=== PATIENT | male | born 1945 | race Caucasian/White ===

== ENCOUNTER 2018-05-25 10:15 | Emergency (ER) | payer MEDICARE, OTHER ==
[~2018-05-25] VITALS: Ht 182.9 cm; Wt 81.8 kg
[2018-05-25 10:50] VITALS: BP 128/77
[2018-05-25] MEDS ORDERED: diphenhydrAMINE 50 mg/ml inj IM ONE (10:55)
[2018-05-25] MEDS ORDERED: epiNEPHrine 1 mg/ml inj SQ STA (11:50)
[2018-05-25] MEDS ORDERED: famotidine 20mg tablet PO ONE (11:50)
[2018-05-25] MEDS ORDERED: DIPH25CA83 PO (11:52)
[2018-05-25] MEDS ORDERED: EPIN0.3P8 IM (11:52)
== END 2018-05-25 12:27 | disposition home or self-care (01) ==
LOC: ER 10:16
DX: T78.40XA Allergy, unspecified, initial encounter (principal); T63.461A Toxic effect of venom of wasps, accidental (unintentional), initial encounter; Z79.899 Other long term (current) drug therapy; Y92.89 Other specified places as the place of occurrence of the external cause
CPT/HCPCS: 96372; 99284; J0171; J1200

== ENCOUNTER 2018-05-30 14:10 | Inpatient (IN) | payer MEDICARE, OTHER ==
[~2018-05-30] VITALS: Ht 182.9 cm; Wt 81.8 kg
[~2018-05-30 14:10] MED LIST: DIPH25CA83 PO; EPIN0.3P8 IM
[2018-05-30] MEDS ORDERED: morphine 4 MG/ML inj SYRINge IV ONE (14:25)
[2018-05-30] MEDS ORDERED: normal saline 1000ML IV soln IVB ONE (14:25)
[2018-05-30] MEDS ORDERED: ondansetron/PF 4mg/2ml inj IV ONE (14:25)
[2018-05-30] MEDS ORDERED: TETanus/Pertussis (Acell)/Diphther VAC/PF (Tdap-Adult) 0.5ml syringe IM ONE (14:25)
[2018-05-30] MEDS ORDERED: BUPIVAcaine/PF 2.5 mg/ml (0.25%) 30ml vial IJ ONE (15:05)
[2018-05-30] MEDS ORDERED: LIDOcaine 1% 30ml preserv. free vial IJ ONE (15:05)
[2018-05-30 15:16] LABS: BASOPHILS % (AUTO) 0.2 % (0-1); EOSINOPHILS # (AUTO) 0.2 X10'3 (0-0.9); EOSINOPHILS % (AUTO) 2.2 % (0-6); HEMOGLOBIN 13.8 g/dl (14.0-17.9); LYMPHOCYTES # (AUTO) 1.1 X10'3 (1.1-4.8); LYMPHOCYTES % (AUTO) 10.9 % (21-51); MEAN CORPUSCULAR HEMOGLOBIN 33.3 PG (27.0-31.0); MEAN CORPUSCULAR HGB CONC 34.5 % (33.0-36.5); MEAN CORPUSCULAR VOLUME 96.3 FL (78-98); MEAN PLATELET VOLUME 8.2 FL (7.4-10.4); MONOCYTES # (AUTO) 0.6 X10'3 (0-0.9); MONOCYTES % (AUTO) 6.4 % (2-12); NEUTROPHILS % (AUTO) 80.3 % (42-75); PLATELET COUNT 156 X10'3 (140-440); RED BLOOD COUNT 4.16 X10'6 (4.70-6.10); RED CELL DISTRIBUTION WIDTH 13.9 % (11.5-14.5)
[2018-05-30] MEDS ORDERED: BUPIVAcaine 2.5mg/ml inj 50ml vial (contains preservative) IJ ONE (15:25)
[2018-05-30 15:33] LABS: PARTIAL THROMBOPLASTIN TIME 22 SECONDS (22-32); PROTHROMBIN TIME 10.6 SECONDS (9.0-12.0)
[2018-05-30 15:38] LABS: ALANINE AMINOTRANSFERASE 26 U/L (12-78); ALBUMIN 3.6 G/DL (3.4-5.0); ALBUMIN/GLOBULIN RATIO 1.2 (1.1-1.5); ALKALINE PHOSPHATASE 70 IU/L (46-116); ANION GAP 8 (8-16); ASPARTATE AMINO TRANSFERASE 18 U/L (10-37); BILIRUBIN,TOTAL 0.6 MG/DL (0.1-1.0); BLOOD UREA NITROGEN 16 MG/DL (7-18); BUN/CREATININE RATIO 18.6 (5.4-32.0); CALCIUM 8.7 MG/DL (8.5-10.1); CHLORIDE 108 MMOL/L (99-107); CREATININE 0.86 MG/DL (0.60-1.10); GLUCOSE 182 MG/DL (70-104); POTASSIUM 3.9 MMOL/L (3.5-5.1); SODIUM 143 MMOL/L (135-145); TOTAL CARBON DIOXIDE 27.1 MMOL/L (24-32); TOTAL PROTEIN 6.6 G/DL (6.4-8.2); eGFR 87 ML/MIN
[2018-05-30 16:05] LABS: TOTAL CELLS COUNTED 100
[2018-05-30 16:06] LABS: PLATELET ESTIMATE NORMAL
[2018-05-30] MEDS ORDERED: acetaminophen 325mg tablet PO PRN ×2 (17:00)
[2018-05-30] MEDS ORDERED: HYDROcodone/acetaminophen 5mg/325mg tablet PO PRN (17:00)
[2018-05-30] MEDS ORDERED: magnesium 1gm/100ml D5W IVPB 100 ML IV PRN (17:00)
[2018-05-30] MEDS ORDERED: potassium Cl 40MEQ/NS 500ml 500 ML IV PRN ×2 (17:00)
[2018-05-30] MEDS ORDERED: morphine 4 MG/ML inj SYRINge IV PRN (17:00)
[2018-05-30] MEDS ORDERED: mag hydrox/Alum hydrox/simeth 30ml oral suspension PO PRN (17:00)
[2018-05-30] MEDS ORDERED: magnesium Cl slow-release 64mg tablet PO PRN (17:00)
[2018-05-30] MEDS ORDERED: magnesium 4gm in 100ml NS 100 ML IV PRN (17:00)
[2018-05-30] MEDS ORDERED: potassium Cl 20 mEq SR tablet PO PRN ×2 (17:00)
[2018-05-30] MEDS ORDERED: magnesium hydroxide 30ml (MOM) UD suspension PO PRN (17:00)
[2018-05-30] MEDS ORDERED: ondansetron/PF 4mg/2ml inj IV PRN (17:00)
[2018-05-30 17:29] LABS: CLARITY,URINE CLEAR (Clear); COLOR,URINE YELLOW (Yellow); GLUCOSE, URINE >=1000 mg/dl (Neg); KETONES,URINE TRACE mg/dl (Neg); LEUKOCYTE ESTERASE ,URINE NEGATIVE (Neg); NITRITES, URINE NEGATIVE (Neg); OCCULT BLOOD,URINE SMALL (Neg); PH,URINE 5.5 (4.8-8.0); PROTEIN,URINE NEGATIVE (Neg); UROBILINOGEN,URINE 0.2 E.U/dL (0.2-1.0)
[2018-05-30 17:34] LABS: UA COLLECTION TYPE FOLEY CATH
[2018-05-30 17:42] LABS: BACTERIA,URINE FEW /HPF (Neg); SQUAMOUS EPITHELIAL CELL,UR FEW /LPF (FEW); WBC,URINE 0-4 /HPF (0-4)
[2018-05-30] MEDS ORDERED: IRON150C13 PO (17:49)
[2018-05-30] MEDS ORDERED: GLIM4TAB79 PO (17:49)
[2018-05-30] MEDS ORDERED: QUIN10TA16 PO (17:49)
[2018-05-30] MEDS ORDERED: PHEN30CA2 PO (17:49)
[2018-05-30] MEDS ORDERED: PRAM0.129 PO (17:49)
[2018-05-30] MEDS ORDERED: OMEP-50 PO (17:49)
[2018-05-30] MEDS ORDERED: ATEN50TA2 PO (17:49)
[2018-05-30] MEDS ORDERED: LIRA0.6P2 (17:49)
[2018-05-30] MEDS ORDERED: FAMO20TA8 PO (17:49)
[2018-05-30] MEDS ORDERED: ROSU5TAB PO (17:49)
[2018-05-30] MEDS ORDERED: METF500T6 PO (17:49)
[2018-05-30] MEDS ORDERED: TEST200V10 IM (17:49)
[2018-05-30] MEDS ORDERED: CITA-278 PO (17:49)
[2018-05-30] MEDS ORDERED: CANA300T PO (17:49)
[2018-05-30 18:00] VITALS: BP 144/73
[2018-05-30] MEDS: normal saline 1000ml 1,000 ML IV SCH (19:43)
[2018-05-30] MEDS: morphine 4 MG/ML inj SYRINge IV PRN (19:45)
[2018-05-30] MEDS: heparin, porcine 5000 units/ml vial SQ SCH (20:07)
[2018-05-30] MEDS ORDERED: temazepam 15mg capsule PO PRN (21:00)
[2018-05-30 22:00] VITALS: BP 127/74
[2018-05-30] MEDS: HYDROcodone/acetaminophen 10/325mg tab PO PRN (22:07)
[2018-05-31] VITALS (19 sets, daily range): BP systolic 99–178; BP diastolic 49–90
[2018-05-31] MEDS: morphine 4 MG/ML inj SYRINge IV PRN (04:10)
[2018-05-31] MEDS: normal saline 1000ml 1,000 ML IV SCH (04:11)
[2018-05-31 05:59] LABS: BASOPHILS % (AUTO) 0.4 % (0-1); EOSINOPHILS # (AUTO) 0.2 X10'3 (0-0.9); EOSINOPHILS % (AUTO) 2.6 % (0-6); HEMATOCRIT 37.5 % (42.0-52.0); HEMOGLOBIN 13.2 g/dl (14.0-17.9); LYMPHOCYTES # (AUTO) 1.6 X10'3 (1.1-4.8); LYMPHOCYTES % (AUTO) 21.6 % (21-51); MEAN CORPUSCULAR HEMOGLOBIN 33.3 PG (27.0-31.0); MEAN CORPUSCULAR HGB CONC 35.1 % (33.0-36.5); MEAN CORPUSCULAR VOLUME 94.9 FL (78-98); MEAN PLATELET VOLUME 9.4 FL (7.4-10.4); MONOCYTES # (AUTO) 0.8 X10'3 (0-0.9); MONOCYTES % (AUTO) 10.6 % (2-12); NEUTROPHILS # (AUTO) 4.9 X10'3 (1.8-7.7); NEUTROPHILS % (AUTO) 64.8 % (42-75); PLATELET COUNT 137 X10'3 (140-440); RED BLOOD COUNT 3.95 X10'6 (4.70-6.10); RED CELL DISTRIBUTION WIDTH 13.8 % (11.5-14.5); WHITE BLOOD COUNT 7.6 X10'3 (4.5-11.0)
[2018-05-31 06:18] LABS: ALBUMIN 3.3 G/DL (3.4-5.0); ANION GAP 9 (8-16); BLOOD UREA NITROGEN 14 MG/DL (7-18); BUN/CREATININE RATIO 17.9 (5.4-32.0); CALCIUM 8.2 MG/DL (8.5-10.1); CHLORIDE 105 MMOL/L (99-107); CREATININE 0.78 MG/DL (0.60-1.10); GLUCOSE 110 MG/DL (70-104); MAGNESIUM 1.9 MG/DL (1.5-2.4); POTASSIUM 3.9 MMOL/L (3.5-5.1); SODIUM 140 MMOL/L (135-145); TOTAL CARBON DIOXIDE 25.6 MMOL/L (24-32); eGFR > 90 ML/MIN
[2018-05-31] MEDS: K and/or MAG REPLACEMENT MC SCH (07:06)
[2018-05-31] MEDS: heparin, porcine 5000 units/ml vial SQ SCH ×2 (07:06→19:27)
[2018-05-31 07:19] LABS: HEMOGLOBIN A1C 7.3 % (4.5-6.2)
[2018-05-31] MEDS ORDERED: sevoflurane 250ml liquid IH ONE (07:56)
[2018-05-31] MEDS ORDERED: propofol inj 20 ML IV ONE (08:00)
[2018-05-31] MEDS ORDERED: fentaNYL/PF 50MCG/1 ML 2ML syringe ONE (08:00)
[2018-05-31] MEDS ORDERED: midazolam 2 mg/2 ml injection ONE (08:00)
[2018-05-31] MEDS ORDERED: ringers solution, lacted 1,000 ML IV SCH (08:01)
[2018-05-31] MEDS ORDERED: proCHLORperazine 10 MG/2 ml inj IV PRN (08:05)
[2018-05-31] MEDS ORDERED: ceFAZolin 1000mg inj ONE ×2 (08:05)
[2018-05-31] MEDS ORDERED: meperidine/PF 25mg/ml syringe IV PRN ×2 (08:05)
[2018-05-31] MEDS ORDERED: morphine 4 MG/ML inj SYRINge IV PRN ×2 (08:05)
[2018-05-31] MEDS ORDERED: ondansetron/PF 4mg/2ml inj IV PRN (08:05)
[2018-05-31] MEDS: meperidine/PF 25mg/ml syringe IV PRN ×2 (09:20→09:35)
[2018-05-31] MEDS: HYDROcodone/acetaminophen 10/325mg tab PO PRN ×3 (10:44→19:21)
[2018-05-31] MEDS ORDERED: dextrose ORAL solution 15 GM/59 ML bottle PO PRN ×2 (13:30)
[2018-05-31] MEDS ORDERED: glucagon, human recombinant 1mg kit SUBCUT PRN (13:30)
[2018-05-31] MEDS ORDERED: MESSAGE TO PHARMACY PO ONE (13:30)
[2018-05-31] MEDS ORDERED: dextrose 50%-water 50ml dispensing syringe IV PRN ×2 (13:30)
[2018-05-31] MEDS: cefazolin/dext.iso 2gm/50ml 50 ML IV SCH (16:23)
[2018-05-31] MEDS: Potassium Cl inj 20 MEQ in normal saline 1000ml 1,000 ML IV SCH (16:24)
[2018-05-31] MEDS: pantoprazole 40mg Tablet.DR PO SCH (19:21)
[2018-05-31] MEDS: lisinopril 20mg tablet PO SCH (19:22)
[2018-05-31] MEDS: insulin Lispro (HumaLOG) vial - multi-dose SQ SCH (19:30)
[2018-05-31] MEDS ORDERED: non-formulary drug (Omeprazole 1 CAP) PO SCH (20:00)
[2018-05-31] MEDS: pramipexole 0.25mg tablet PO SCH (20:35)
[2018-05-31] MEDS: insulin glargine (Lantus) pen - multi-dose SQ SCH (20:40)
[2018-05-31] MEDS ORDERED: PRAMIPEXOLE DI HCL PO SCH (21:00)
[2018-06-01] MEDS: cefazolin/dext.iso 2gm/50ml 50 ML IV SCH (00:23)
[2018-06-01 02:00] VITALS: BP 114/59
[2018-06-01] MEDS: Potassium Cl inj 20 MEQ in normal saline 1000ml 1,000 ML IV SCH (04:53)
[2018-06-01] MEDS: HYDROcodone/acetaminophen 10/325mg tab PO PRN ×4 (04:53→20:51)
[2018-06-01 06:00] VITALS: BP 124/58
[2018-06-01 06:09] LABS: BASOPHILS % (AUTO) 0.3 % (0-1); EOSINOPHILS # (AUTO) 0.2 X10'3 (0-0.9); EOSINOPHILS % (AUTO) 2.5 % (0-6); HEMATOCRIT 28.8 % (42.0-52.0); HEMOGLOBIN 9.9 g/dl (14.0-17.9); LYMPHOCYTES # (AUTO) 1.3 X10'3 (1.1-4.8); MEAN CORPUSCULAR HEMOGLOBIN 33.2 PG (27.0-31.0); MEAN CORPUSCULAR HGB CONC 34.6 % (33.0-36.5); MEAN PLATELET VOLUME 8.1 FL (7.4-10.4); MONOCYTES # (AUTO) 1.2 X10'3 (0-0.9); MONOCYTES % (AUTO) 13.2 % (2-12); NEUTROPHILS # (AUTO) 6.4 X10'3 (1.8-7.7); PLATELET COUNT 139 X10'3 (140-440); RED CELL DISTRIBUTION WIDTH 13.9 % (11.5-14.5); WHITE BLOOD COUNT 9.1 X10'3 (4.5-11.0)
[2018-06-01 06:22] LABS: ALBUMIN 2.8 G/DL (3.4-5.0); ANION GAP 12 (8-16); BLOOD UREA NITROGEN 11 MG/DL (7-18); BUN/CREATININE RATIO 15.3 (5.4-32.0); CHLORIDE 101 MMOL/L (99-107); CREATININE 0.72 MG/DL (0.60-1.10); GLUCOSE 120 MG/DL (70-104); MAGNESIUM 1.8 MG/DL (1.5-2.4); POTASSIUM 4.2 MMOL/L (3.5-5.1); SODIUM 135 MMOL/L (135-145); TOTAL CARBON DIOXIDE 22.3 MMOL/L (24-32); eGFR > 90 ML/MIN
[2018-06-01] MEDS: K and/or MAG REPLACEMENT MC SCH (07:23)
[2018-06-01] MEDS: aspirin 325mg tablet, delayed-release (Ecotrin) PO SCH (07:46)
[2018-06-01] MEDS: atorvastatin 20mg tablet PO SCH (07:46)
[2018-06-01] MEDS: pantoprazole 40mg Tablet.DR PO SCH ×2 (07:46→20:51)
[2018-06-01] MEDS: heparin, porcine 5000 units/ml vial SQ SCH ×2 (07:46→20:51)
[2018-06-01] MEDS: lisinopril 20mg tablet PO SCH (07:47)
[2018-06-01] MEDS: citalopram 20mg tablet PO SCH (07:47)
[2018-06-01] MEDS: iron polysaccharide complex 150mg capsule PO SCH (07:47)
[2018-06-01] MEDS: atenolol 25mg tablet PO SCH (07:47)
[2018-06-01] MEDS ORDERED: atenolol 50mg tablet PO SCH (08:00)
[2018-06-01] MEDS ORDERED: ROSUVASTATIN CALCIUM PO SCH (08:00)
[2018-06-01] MEDS: insulin Lispro (HumaLOG) vial - multi-dose SQ SCH ×3 (08:48→18:44)
[2018-06-01 10:00] VITALS: BP 92/38
[2018-06-01 18:00] VITALS: BP 96/49
[2018-06-01 20:00] VITALS: BP 108/56
[2018-06-01] MEDS: pramipexole 0.25mg tablet PO SCH (20:51)
[2018-06-01] MEDS: insulin glargine (Lantus) pen - multi-dose SQ SCH (20:55)
[2018-06-02 05:00] VITALS: BP 128/56
[2018-06-02 06:00] LABS: BASOPHILS % (AUTO) 0.4 % (0-1); EOSINOPHILS # (AUTO) 0.3 X10'3 (0-0.9); EOSINOPHILS % (AUTO) 3.3 % (0-6); HEMATOCRIT 25.6 % (42.0-52.0); HEMOGLOBIN 8.9 g/dl (14.0-17.9); LYMPHOCYTES # (AUTO) 1.2 X10'3 (1.1-4.8); LYMPHOCYTES % (AUTO) 14.2 % (21-51); MEAN CORPUSCULAR HEMOGLOBIN 33.3 PG (27.0-31.0); MEAN CORPUSCULAR HGB CONC 34.9 % (33.0-36.5); MEAN CORPUSCULAR VOLUME 95.7 FL (78-98); MEAN PLATELET VOLUME 7.8 FL (7.4-10.4); MONOCYTES # (AUTO) 0.9 X10'3 (0-0.9); MONOCYTES % (AUTO) 11.3 % (2-12); NEUTROPHILS # (AUTO) 5.9 X10'3 (1.8-7.7); NEUTROPHILS % (AUTO) 70.8 % (42-75); PLATELET COUNT 141 X10'3 (140-440); RED BLOOD COUNT 2.68 X10'6 (4.70-6.10); RED CELL DISTRIBUTION WIDTH 13.8 % (11.5-14.5); WHITE BLOOD COUNT 8.4 X10'3 (4.5-11.0)
[2018-06-02] MEDS: HYDROcodone/acetaminophen 10/325mg tab PO PRN ×2 (06:17→14:40)
[2018-06-02 06:24] LABS: ALBUMIN 2.6 G/DL (3.4-5.0); ANION GAP 8 (8-16); BLOOD UREA NITROGEN 15 MG/DL (7-18); BUN/CREATININE RATIO 17.9 (5.4-32.0); CALCIUM 8.2 MG/DL (8.5-10.1); CHLORIDE 101 MMOL/L (99-107); CREATININE 0.84 MG/DL (0.60-1.10); GLUCOSE 164 MG/DL (70-104); MAGNESIUM 2.1 MG/DL (1.5-2.4); POTASSIUM 4.1 MMOL/L (3.5-5.1); SODIUM 136 MMOL/L (135-145); eGFR 90 ML/MIN
[2018-06-02] MEDS: K and/or MAG REPLACEMENT MC SCH (06:57)
[2018-06-02 07:55] VITALS: BP 96/63
[2018-06-02] MEDS: atenolol 25mg tablet PO SCH (07:57)
[2018-06-02] MEDS: iron polysaccharide complex 150mg capsule PO SCH (08:02)
[2018-06-02] MEDS: citalopram 20mg tablet PO SCH (08:02)
[2018-06-02] MEDS: atorvastatin 20mg tablet PO SCH (08:02)
[2018-06-02] MEDS: aspirin 325mg tablet, delayed-release (Ecotrin) PO SCH (08:02)
[2018-06-02] MEDS: pantoprazole 40mg Tablet.DR PO SCH (08:02)
[2018-06-02] MEDS: heparin, porcine 5000 units/ml vial SQ SCH (08:03)
[2018-06-02] MEDS: insulin Lispro (HumaLOG) vial - multi-dose SQ SCH ×2 (09:02→13:14)
[2018-06-02 10:00] VITALS: BP 104/51
[2018-06-02] MEDS ORDERED: lisinopril 10 MG tablet PO SCH (20:00)
== END 2018-06-02 15:20 | DRG 481 ==
LOC: ER 14:11 → ED HOLD 16:57 → ORTHO 4S 18:00
PROVIDERS: ADMIT Internal Medicine; ATTEND Internal Medicine
PROC: 3E0T3BZ Introduction of Anesthetic Agent into Peripheral Nerves and Plexi, Percutaneous Approach (ICD-10-PCS; 2018-05-30)
PROC: 0QS606Z Reposition Right Upper Femur with Intramedullary Internal Fixation Device, Open Approach (ICD-10-PCS; principal; 2018-05-31 07:56)
DX: S72.141A Displaced intertrochanteric fracture of right femur, initial encounter for closed fracture (principal); D62 Acute posthemorrhagic anemia; E11.9 Type 2 diabetes mellitus without complications; E78.5 Hyperlipidemia, unspecified; F17.200 Nicotine dependence, unspecified, uncomplicated; W01.198A Fall on same level from slipping, tripping and stumbling with subsequent striking against other object, initial encounter; G25.81 Restless legs syndrome; I10 Essential (primary) hypertension; K21.9 Gastro-esophageal reflux disease without esophagitis; Z72.89 Other problems related to lifestyle; Z79.82 Long term (current) use of aspirin; Z79.84 Long term (current) use of oral hypoglycemic drugs; Z79.899 Other long term (current) drug therapy; Y93.89 Activity, other specified; Y92.89 Other specified places as the place of occurrence of the external cause; Y99.8 Other external cause status
CPT/HCPCS: 27495; 36415; 71045; 73502; 73552; 76000; 80048; 80053; 81001; 82948; 83036; 83735; 85025; 85610; 85730; 86885; 86900; 86901; 87070; 90715; 93005; 97110; 97116; 97162; 97530; A4315; A6222; A6449; A7000; J0690; J1644; J1815; J2175; J2250; J2270; J2405; J2704; J3010; J3480; J3490; J7030; J7120

== ENCOUNTER 2018-07-07 10:41 | Inpatient (IN) | payer MEDICARE, OTHER ==
[~2018-07-07] VITALS: Ht 182.9 cm; Wt 79.5 kg
[~2018-07-07 10:41] MED LIST changes: +ATEN50TA2 PO; +CANA300T PO; +CITA-278 PO; -DIPH25CA83 PO; +FAMO20TA8 PO; +GLIM4TAB79 PO; +IRON150C13 PO; +LIRA0.6P2 SQ; +METF-950 PO; +OMEP-50 PO; +PHEN30CA2 PO; +PRAM0.129 PO; +QUIN10TA16 PO; +ROSU5TAB PO; +TEST200V10 IM
[2018-07-07] MEDS ORDERED: LORazepam 2 mg/ml vial IV ONE (11:25)
[2018-07-07 11:49] LABS: BASOPHILS % (AUTO) 0.5 % (0-1); EOSINOPHILS # (AUTO) 0.1 X10'3 (0-0.9); EOSINOPHILS % (AUTO) 1.6 % (0-6); HEMATOCRIT 37.3 % (42.0-52.0); HEMOGLOBIN 12.9 g/dl (14.0-17.9); LYMPHOCYTES # (AUTO) 1.1 X10'3 (1.1-4.8); LYMPHOCYTES % (AUTO) 12.3 % (21-51); MEAN CORPUSCULAR HEMOGLOBIN 32.5 PG (27.0-31.0); MEAN CORPUSCULAR HGB CONC 34.5 % (33.0-36.5); MEAN CORPUSCULAR VOLUME 94.2 FL (78-98); MEAN PLATELET VOLUME 7.7 FL (7.4-10.4); MONOCYTES # (AUTO) 0.8 X10'3 (0-0.9); MONOCYTES % (AUTO) 8.7 % (2-12); NEUTROPHILS # (AUTO) 6.9 X10'3 (1.8-7.7); NEUTROPHILS % (AUTO) 76.9 % (42-75); PLATELET COUNT 170 X10'3 (140-440); RED BLOOD COUNT 3.96 X10'6 (4.70-6.10); RED CELL DISTRIBUTION WIDTH 14.3 % (11.5-14.5); WHITE BLOOD COUNT 8.9 X10'3 (4.5-11.0)
[2018-07-07 11:58] LABS: PROTHROMBIN TIME 10.1 SECONDS (9.0-12.0)
[2018-07-07 12:03] LABS: ALANINE AMINOTRANSFERASE 16 U/L (12-78); ALBUMIN 3.4 G/DL (3.4-5.0); ALKALINE PHOSPHATASE 152 IU/L (46-116); ANION GAP 5 (8-16); ASPARTATE AMINO TRANSFERASE 15 U/L (10-37); BILIRUBIN,TOTAL 0.6 MG/DL (0.1-1.0); BLOOD UREA NITROGEN 13 MG/DL (7-18); BUN/CREATININE RATIO 15.9 (5.4-32.0); CALCIUM 9.2 MG/DL (8.5-10.1); CHLORIDE 99 MMOL/L (99-107); CREATININE 0.82 MG/DL (0.60-1.10); GLUCOSE 222 MG/DL (70-104); POTASSIUM 4.3 MMOL/L (3.5-5.1); SODIUM 134 MMOL/L (135-145); TOTAL CARBON DIOXIDE 30.2 MMOL/L (24-32); TOTAL PROTEIN 6.7 G/DL (6.4-8.2); eGFR > 90 ML/MIN
[2018-07-07] MEDS ORDERED: ondansetron/PF 4mg/2ml inj IV PRN (13:05)
[2018-07-07] MEDS ORDERED: morphine 2 MG/ML inj. syringe IV PRN (13:05)
[2018-07-07] MEDS ORDERED: glucagon, human recombinant 1mg kit SUBCUT PRN (13:05)
[2018-07-07] MEDS ORDERED: potassium Cl 20 mEq SR tablet PO PRN ×2 (13:05)
[2018-07-07] MEDS ORDERED: dextrose ORAL solution 15 GM/59 ML bottle PO PRN ×2 (13:05)
[2018-07-07] MEDS ORDERED: potassium Cl 40MEQ/NS 500ml 500 ML IV PRN ×2 (13:05)
[2018-07-07] MEDS ORDERED: magnesium 4gm in 100ml NS 100 ML IV PRN (13:05)
[2018-07-07] MEDS ORDERED: LORazepam 1 MG tablet PO PRN (13:05)
[2018-07-07] MEDS ORDERED: thiamine inj. 100 MG in normal saline 100ml IV soln 100 ML IV ONE (13:05)
[2018-07-07] MEDS ORDERED: dextrose 50%-water 50ml dispensing syringe IV PRN ×2 (13:05)
[2018-07-07] MEDS ORDERED: acetaminophen 325mg tablet PO PRN (13:05)
[2018-07-07] MEDS ORDERED: magnesium hydroxide 30ml (MOM) UD suspension PO PRN (13:05)
[2018-07-07] MEDS ORDERED: MESSAGE TO PHARMACY PO ONE (13:05)
[2018-07-07] MEDS ORDERED: mag hydrox/Alum hydrox/simeth 30ml oral suspension PO PRN (13:05)
[2018-07-07] MEDS ORDERED: magnesium 1gm/100ml D5W IVPB 100 ML IV PRN (13:05)
[2018-07-07] MEDS ORDERED: haloperidol 5mg tablet PO PRN (13:05)
[2018-07-07] MEDS ORDERED: LORazepam 2 mg/ml vial IV PRN (13:05)
[2018-07-07] MEDS ORDERED: insulin Lispro (HumaLOG) vial - multi-dose SQ SCH (13:05)
[2018-07-07] MEDS ORDERED: haloperidol lactate 5mg/ml inj IM PRN (13:05)
[2018-07-07 13:13] LABS: CLARITY,URINE CLEAR (Clear); COLOR,URINE YELLOW (Yellow); GLUCOSE, URINE >=1000 mg/dl (Neg); KETONES,URINE NEGATIVE (Neg); LEUKOCYTE ESTERASE ,URINE NEGATIVE (Neg); NITRITES, URINE NEGATIVE (Neg); OCCULT BLOOD,URINE NEGATIVE (Neg); PROTEIN,URINE NEGATIVE (Neg); UROBILINOGEN,URINE 0.2 E.U/dL (0.2-1.0)
[2018-07-07 13:14] LABS: UA COLLECTION TYPE CLN CATCH MIDSTREAM
[2018-07-07 13:21] LABS: BACTERIA,URINE NONE SEEN /HPF (Neg); RBC,URINE NONE SEEN /HPF (0-2); SQUAMOUS EPITHELIAL CELL,UR FEW /LPF (FEW); WBC,URINE NONE SEEN /HPF (0-4)
[2018-07-07] MEDS ORDERED: folic acid inj. 2 MG, thiamine inj. 100 MG, MVI, adult No.4 with vit. K 10 ML in dextro... IV ONE ×4 (13:25)
[2018-07-07] MEDS: normal saline 1000ml 1,000 ML IV SCH ×2 (13:32→23:04)
[2018-07-07] MEDS: morphine 2 MG/ML inj. syringe IV PRN ×3 (14:04→22:57)
[2018-07-07] MEDS: heparin, porcine 5000 units/ml vial SQ SCH (16:31)
[2018-07-07 18:00] VITALS: BP 143/82
[2018-07-07] MEDS ORDERED: QUINAPRIL HCL 20 MG PO SCH (20:00)
[2018-07-07] MEDS ORDERED: non-formulary drug (Omeprazole 1 CAP) PO SCH (20:00)
[2018-07-07] MEDS: pantoprazole 40mg Tablet.DR PO SCH (20:31)
[2018-07-07] MEDS: lisinopril 20mg tablet PO SCH (20:31)
[2018-07-07] MEDS: pramipexole 0.25mg tablet PO SCH (20:31)
[2018-07-07] MEDS: famotidine 20mg tablet PO SCH (20:31)
[2018-07-07] MEDS ORDERED: PRAMIPEXOLE DI HCL PO SCH (21:00)
[2018-07-07] MEDS: insulin glargine (Lantus) pen - multi-dose SQ SCH (21:00)
[2018-07-07 22:00] VITALS: BP 120/74
[2018-07-08] VITALS (18 sets, daily range): BP systolic 103–176; BP diastolic 47–93
[2018-07-08 05:59] LABS: BASOPHILS % (AUTO) 0.4 % (0-1); EOSINOPHILS # (AUTO) 0.2 X10'3 (0-0.9); EOSINOPHILS % (AUTO) 2.3 % (0-6); HEMATOCRIT 35.5 % (42.0-52.0); HEMOGLOBIN 12.1 g/dl (14.0-17.9); LYMPHOCYTES # (AUTO) 1.2 X10'3 (1.1-4.8); MEAN CORPUSCULAR HEMOGLOBIN 32.6 PG (27.0-31.0); MEAN CORPUSCULAR HGB CONC 34.2 % (33.0-36.5); MEAN CORPUSCULAR VOLUME 95.3 FL (78-98); MEAN PLATELET VOLUME 7.8 FL (7.4-10.4); MONOCYTES # (AUTO) 0.7 X10'3 (0-0.9); MONOCYTES % (AUTO) 9.8 % (2-12); NEUTROPHILS # (AUTO) 4.7 X10'3 (1.8-7.7); NEUTROPHILS % (AUTO) 69.5 % (42-75); PLATELET COUNT 151 X10'3 (140-440); RED BLOOD COUNT 3.73 X10'6 (4.70-6.10); RED CELL DISTRIBUTION WIDTH 14.4 % (11.5-14.5); WHITE BLOOD COUNT 6.8 X10'3 (4.5-11.0)
[2018-07-08 06:32] LABS: ALANINE AMINOTRANSFERASE 20 U/L (12-78); ALBUMIN 3.2 G/DL (3.4-5.0); ALKALINE PHOSPHATASE 136 IU/L (46-116); AMYLASE 19 U/L (25-115); ANION GAP 7 (8-16); ASPARTATE AMINO TRANSFERASE 12 U/L (10-37); BILIRUBIN,TOTAL 0.7 MG/DL (0.1-1.0); BLOOD UREA NITROGEN 11 MG/DL (7-18); BUN/CREATININE RATIO 13.3 (5.4-32.0); CHLORIDE 101 MMOL/L (99-107); CHOL/HDL RATIO 2.1 (0.00-4.99); CHOLESTEROL 101 MG/DL (0-200); CREATININE 0.83 MG/DL (0.60-1.10); GLUCOSE 125 MG/DL (70-104); HDL CHOLESTEROL 47 MG/DL (35-60); LIPASE 106 U/L (73-393); MAGNESIUM 1.9 MG/DL (1.5-2.4); PHOSPHORUS 4.5 MG/DL (2.3-4.5); POTASSIUM 4.1 MMOL/L (3.5-5.1); SODIUM 138 MMOL/L (135-145); TOTAL CARBON DIOXIDE 29.7 MMOL/L (24-32); TOTAL PROTEIN 6.5 G/DL (6.4-8.2); TRIGLYCERIDES 94 MG/DL (20-135); eGFR > 90 ML/MIN
[2018-07-08] MEDS: heparin, porcine 5000 units/ml vial SQ SCH ×3 (07:24→17:39)
[2018-07-08] MEDS: folic acid inj. 2 MG, thiamine inj. 100 MG, MVI, adult No.4 with vit. K 10 ML in dextro... IV SCH ×4 (07:38)
[2018-07-08] MEDS: atorvastatin 20mg tablet PO SCH (07:39)
[2018-07-08] MEDS: lisinopril 20mg tablet PO SCH ×2 (07:39→20:37)
[2018-07-08] MEDS: pantoprazole 40mg Tablet.DR PO SCH ×2 (07:39→20:37)
[2018-07-08] MEDS: citalopram 20mg tablet PO SCH (07:39)
[2018-07-08] MEDS: iron polysaccharide complex 150mg capsule PO SCH (07:42)
[2018-07-08] MEDS ORDERED: ROSUVASTATIN CALCIUM PO SCH (08:00)
[2018-07-08] MEDS ORDERED: atenolol 50mg tablet PO SCH (08:00)
[2018-07-08] MEDS ORDERED: K and/or MAG REPLACEMENT MC SCH (08:00)
[2018-07-08] MEDS: morphine 2 MG/ML inj. syringe IV PRN ×2 (12:04→20:42)
[2018-07-08] MEDS: normal saline 1000ml 1,000 ML IV SCH ×2 (12:04→21:56)
[2018-07-08 13:40] LABS: LDL CHOLESTEROL 43 MG/DL (50-100)
[2018-07-08] MEDS ORDERED: propofol inj 20 ML IV ONE (14:13)
[2018-07-08] MEDS ORDERED: ceFAZolin 1000mg inj ONE (14:30)
[2018-07-08] MEDS ORDERED: BUPIVAcaine/PF 2.5mg/ml (0.25%) 10ml vial ONE (14:30)
[2018-07-08] MEDS ORDERED: sevoflurane 250ml liquid IH ONE (14:36)
[2018-07-08] MEDS ORDERED: fentaNYL/PF 50MCG/1 ML 2ML syringe ONE (14:40)
[2018-07-08] MEDS ORDERED: midazolam 2 mg/2 ml injection ONE (14:40)
[2018-07-08] MEDS ORDERED: ringers solution, lacted 1,000 ML IV SCH (15:31)
[2018-07-08] MEDS ORDERED: morphine 4 MG/ML inj SYRINge IV PRN ×2 (15:35)
[2018-07-08] MEDS ORDERED: proCHLORperazine 10 MG/2 ml inj IV PRN (15:35)
[2018-07-08] MEDS ORDERED: meperidine/PF 25mg/ml syringe IV PRN ×3 (15:35)
[2018-07-08] MEDS ORDERED: ondansetron/PF 4mg/2ml inj IV PRN (15:35)
[2018-07-08] MEDS ORDERED: ceFAZolin 1GM/D5W- ADD-VANTAGE 50 ML IV ONE (16:00)
[2018-07-08] MEDS: pramipexole 0.25mg tablet PO SCH (20:38)
[2018-07-08] MEDS: famotidine 20mg tablet PO SCH (20:38)
[2018-07-08] MEDS: metFORMIN 500mg tablet PO SCH (20:38)
[2018-07-08] MEDS: insulin glargine (Lantus) pen - multi-dose SQ SCH (21:00)
[2018-07-09] MEDS: heparin, porcine 5000 units/ml vial SQ SCH ×2 (00:14→07:57)
[2018-07-09 02:00] VITALS: BP 139/64
[2018-07-09] MEDS ORDERED: HYDROcodone/acetaminophen 10/325mg tab PO PRN (04:35)
[2018-07-09] MEDS: HYDROcodone/acetaminophen 10/325mg tab PO PRN ×2 (05:23→10:13)
[2018-07-09 05:35] LABS: BASOPHILS % (AUTO) 0.3 % (0-1); EOSINOPHILS # (AUTO) 0.2 X10'3 (0-0.9); EOSINOPHILS % (AUTO) 3.3 % (0-6); HEMOGLOBIN 11.4 g/dl (14.0-17.9); LYMPHOCYTES # (AUTO) 1.3 X10'3 (1.1-4.8); MEAN CORPUSCULAR HEMOGLOBIN 32.7 PG (27.0-31.0); MEAN CORPUSCULAR HGB CONC 34.5 % (33.0-36.5); MEAN CORPUSCULAR VOLUME 94.9 FL (78-98); MONOCYTES # (AUTO) 0.8 X10'3 (0-0.9); NEUTROPHILS # (AUTO) 4.6 X10'3 (1.8-7.7); NEUTROPHILS % (AUTO) 66.4 % (42-75); PLATELET COUNT 153 X10'3 (140-440); RED BLOOD COUNT 3.48 X10'6 (4.70-6.10); RED CELL DISTRIBUTION WIDTH 14.5 % (11.5-14.5); WHITE BLOOD COUNT 6.9 X10'3 (4.5-11.0)
[2018-07-09 05:54] LABS: ALANINE AMINOTRANSFERASE 20 U/L (12-78); ALKALINE PHOSPHATASE 126 IU/L (46-116); AMYLASE 22 U/L (25-115); ANION GAP 5 (8-16); ASPARTATE AMINO TRANSFERASE 13 U/L (10-37); BILIRUBIN,TOTAL 0.6 MG/DL (0.1-1.0); BLOOD UREA NITROGEN 12 MG/DL (7-18); BUN/CREATININE RATIO 15.8 (5.4-32.0); CALCIUM 8.8 MG/DL (8.5-10.1); CHLORIDE 105 MMOL/L (99-107); CREATININE 0.76 MG/DL (0.60-1.10); GLUCOSE 89 MG/DL (70-104); LIPASE 131 U/L (73-393); MAGNESIUM 1.8 MG/DL (1.5-2.4); PHOSPHORUS 4.3 MG/DL (2.3-4.5); POTASSIUM 4.6 MMOL/L (3.5-5.1); SODIUM 139 MMOL/L (135-145); TOTAL CARBON DIOXIDE 29.5 MMOL/L (24-32); TOTAL PROTEIN 6.1 G/DL (6.4-8.2); eGFR > 90 ML/MIN
[2018-07-09 06:00] VITALS: BP 138/71
[2018-07-09] MEDS: iron polysaccharide complex 150mg capsule PO SCH (07:53)
[2018-07-09] MEDS: folic acid inj. 2 MG, thiamine inj. 100 MG, MVI, adult No.4 with vit. K 10 ML in dextro... IV SCH ×4 (07:54)
[2018-07-09] MEDS: citalopram 20mg tablet PO SCH (07:55)
[2018-07-09] MEDS: metFORMIN 500mg tablet PO SCH (07:55)
[2018-07-09] MEDS: pantoprazole 40mg Tablet.DR PO SCH (07:56)
[2018-07-09] MEDS: atorvastatin 20mg tablet PO SCH (07:56)
[2018-07-09] MEDS: lisinopril 20mg tablet PO SCH (07:56)
[2018-07-09] MEDS ORDERED: ASPI-1264 PO (08:11)
[2018-07-10] MEDS ORDERED: folic acid 1mg tablet PO SCH (08:00)
[2018-07-10] MEDS ORDERED: multivitamins, therapeutics tablet PO SCH (08:00)
[2018-07-10] MEDS ORDERED: thiamine 100mg tablet PO SCH (08:00)
== END 2018-07-09 10:45 | disposition home or self-care (01) | DRG 481 ==
LOC: ER 10:42 → ED HOLD 13:04 → ORTHO 4S 14:35
PROVIDERS: ADMIT Family Medicine; ATTEND Family Medicine
PROC: 0QH834Z Insertion of Internal Fixation Device into Right Femoral Shaft, Percutaneous Approach (ICD-10-PCS; principal; 2018-07-08 14:36)
DX: S72.341A Displaced spiral fracture of shaft of right femur, initial encounter for closed fracture (principal); D62 Acute posthemorrhagic anemia; M97.01XA Periprosthetic fracture around internal prosthetic right hip joint, initial encounter; G25.81 Restless legs syndrome; E11.9 Type 2 diabetes mellitus without complications; E78.00 Pure hypercholesterolemia, unspecified; F10.10 Alcohol abuse, uncomplicated; F32.9 Major depressive disorder, single episode, unspecified; E78.5 Hyperlipidemia, unspecified; I10 Essential (primary) hypertension; K21.9 Gastro-esophageal reflux disease without esophagitis; W01.0XXA Fall on same level from slipping, tripping and stumbling without subsequent striking against object, initial encounter; Z79.899 Other long term (current) drug therapy; Z79.84 Long term (current) use of oral hypoglycemic drugs; Z85.820 Personal history of malignant melanoma of skin; Y93.89 Activity, other specified; Y92.89 Other specified places as the place of occurrence of the external cause; Y99.8 Other external cause status
CPT/HCPCS: 36415; 71045; 73502; 73552; 76000; 80053; 80061; 81001; 82150; 82948; 83036; 83690; 83735; 84100; 85025; 85610; 86885; 86900; 86901; 87070; 96374; 97116; 97161; 99285; A7000; C1713; J0690; J1644; J1815; J2060; J2250; J2270; J2704; J3010; J3370; J3411; J3490; J7030; J7060; J7120